=== PATIENT | male | born 1980 | race Hispanic/Latino ===

== ENCOUNTER 2018-05-16 21:18 | Emergency (ER) | payer OTHER ==
[2018-05-16 21:35] VITALS: BP 108/66; PULSE 74; RESP 18; TEMP 98.4; O2SAT 100
--- NOTE | 2018-05-16 21:55 | ED PDOC ---
Lower Extremity Pain/Injury Time Seen by Provider: 05/16/18 21:52 Chief Complaint (Nursing): Lower Extremity Problem/Injury Chief Complaint (Provider): right ankle pain History Per: Patient Additional Complaint(s): 37-year-old male presents with pain to right ankle status post trip and fall about 1 hour prior to arrival. Patient has not tried to bear weight since injury. No medications taken for pain since injury. Patient denies any other injuries, no head injury or loss of consciousness. PMD: does not have PMD locally Past Medical History Reviewed: Historical Data, Nursing Documentation, Vital Signs Vital Signs: Last Vital Signs Temp 98.4 F 05/16/18 21:33 Pulse 74 05/16/18 21:33 Resp 18 05/16/18 21:33 BP 108/66 05/16/18 21:33 Pulse Ox 100 05/16/18 21:33 - Medical History PMH: No Chronic Diseases - Family History Family History: States: No Known Family Hx - Living Arrangements Living Arrangements: With Family - Social History Current smoker - smoking cessation education provided: No Alcohol: None Drugs: Denies - Allergies Allergies/Adverse Reactions: Allergies Allergy/AdvReac Type Severity Reaction Status Date / Time No Known Allergies Allergy Verified 05/16/18 21:55 Wells Criteria for PE - Wells Criteria for Pulmonary Embolism Clinical Signs and Symptoms of DVT: No P.E is #1 Diagnosis, or Equally Likely: No Heart Rate >100: No Immobilization at least 3 days;Surgery previous 4 weeks: No Previous, objectively diagnosed PE or DVT: No Hemoptysis: No Malignancy w/treatment within 6 months, or palliative: No Total Score: 0 Review of Systems ROS Statement: Except As Marked, All Systems Reviewed And Found Negative Musculoskeletal: Positive for: Other (right ankle injury) Neurological: Positive for: Other (no head injury or LOC) Physical Exam - Reviewed Nursing Documentation Reviewed: Yes Vital Signs Reviewed: Yes - Physical Exam Appears: Positive for: Well, Non-toxic, No Acute Distress Skin: Positive for: Normal Color. Negative for: Rash Eye Exam: Positive for: Normal appearance Neck: Positive for: Normal Extremity: Positive for: Other (mild swelling with minimal tenderness to right lateral malleolus, nontender right foot, achilles tendon intact) Neurologic/Psych: Positive for: Alert, Oriented - ECG O2 Sat by Pulse Oximetry: 100 Pulse Ox Interpretation: Normal - Other Rad right ankle x-ray X-Ray: Interpreted by Me, Viewed By Me X-Ray Interpretation: no fx, no dis Medical Decision Making Medical Decision [id number] y/o M with right ankle pain Plan: PO motrin X-ray right ankle Patient is aware of x-ray results, all questions answered. Crutches given. Advised ice, elevation and rest. OTC NSAID's and podiatry follow up for any persistent symptoms. Procedures - Splinting Location: right ankle Pre-Made Type: aircast Pre-Proc Neuro Vasc Exam: normal Post-Proc Neuro Vasc Exam: normal Disposition - Clinical Impression Clinical Impression: Right ankle sprain - Patient ED Disposition Is Patient to be Admitted: No Counseled Patient/Family Regarding: Studies Performed, Diagnosis, Need For Followup - Disposition Referrals: Podiatry Clinic [Outside] Disposition: Routine/Home Disposition Time: 22:25 Condition: STABLE Additional Instructions: Ice, rest and elevate affected area. Take over the counter advil (3 2oo mg tablets every 6 hrs as needed for pain). Advance activity as tolerated. Follow up with algebra tutor or orthopedist for any persistent symptoms. Instructions: Ankle Sprain, How to Use Crutches, Going Up and Down Curbs or Stairs With a Walker or Crutches Forms: [employer] (Serbian)
--- NOTE | 2018-05-17 09:33 | RAD ---
Date of service: 05/16/2018 PROCEDURE: Right Ankle Radiographs. HISTORY: trauma COMPARISON: None FINDINGS: BONES: Normal. No fracture. JOINTS: Normal. No osteoarthritis. Ankle mortise maintained. Talar dome intact SOFT TISSUES: Normal. OTHER FINDINGS: None. IMPRESSION: Normal right ankle radiographs.
== END 2018-05-16 22:37 | disposition home or self-care (01) ==
LOC: H.ER 21:18
DX: S93.401A Sprain of unspecified ligament of right ankle, initial encounter (principal); W19.XXXA Unspecified fall, initial encounter; Y92.89 Other specified places as the place of occurrence of the external cause